=== PATIENT | female | born 1985 | race Caucasian/White ===

== ENCOUNTER 2020-06-17 15:07 | Emergency (ER) | payer OTHER ==
[~2020-06-17] VITALS: Ht 160 cm; Wt 99.9 kg
[~2020-06-17 15:07] MED LIST: DOCU-131 PO; LABE100T6 PO; OXYC1TAB14 PO; PREN1TAB56 PO
--- NOTE | 2020-06-17 15:56 | NUR ---
RECEIVED REPORT FROM [facility]. PT RESTING ON YASMIN. NADN. OLEARY.
[2020-06-17 16:04] LABS: BASOPHILS % (AUTO) 1 % (0-1); EOSINOPHILS % (AUTO) 4 % (1-7); LYMPHOCYTES % (AUTO) 24 % (22-44); MEAN CORPUSCULAR HEMOGLOBIN 29.3 pg (27.0-34.8); MEAN CORPUSCULAR HGB CONC 34.5 g/dL (32.4-35.8); MEAN PLATELET VOLUME 8.3 fL (7.4-10.4); MONOCYTES % (AUTO) 9 % (2-9); NEUTROPHILS % (AUTO) 63 % (42-75); PLATELET COUNT 232 x10^3/uL (130-400); RED BLOOD COUNT 4.76 x10^6/uL (3.82-5.3); RED CELL DISTRIBUTION WIDTH 12.8 % (9.6-15.2)
[2020-06-17 16:06] LABS: ALANINE AMINOTRANSFERASE 27 U/L (12-78); ALBUMIN 3.6 g/dL (3.4-5.0); ANION GAP 4 mmol/L (5-15); CALCIUM 8.8 mg/dL (8.5-10.1); CHLORIDE 109 mmol/L (98-107); CREATININE 0.96 mg/dL (0.55-1.02); MD NO
[2020-06-17 16:11] LABS: ALKALINE PHOSPHATASE 70 U/L (45-117); BILIRUBIN,TOTAL 0.2 mg/dL (0.2-1.0); TOTAL PROTEIN 7.5 g/dL (6.4-8.2)
[2020-06-17 17:02] VITALS: BP 129/60
--- NOTE | 2020-06-17 17:02 | NUR ---
PT RESTING ON GURNEY. NADN. OLEARY.
== END 2020-06-17 17:13 | disposition home or self-care (01) ==
LOC: ED 16:37
DX: T75.89XA Other specified effects of external causes, initial encounter (principal); W46.1XXA Contact with contaminated hypodermic needle, initial encounter; Y93.89 Activity, other specified; Y92.89 Other specified places as the place of occurrence of the external cause; Y99.8 Other external cause status
CPT/HCPCS: 36415; 80053; 84703; 85025; 86803; 87340; 87806; 99283; G0475